=== PATIENT | male | born 1975 | race Asian ===

== ENCOUNTER 2024-02-14 10:47 | Outpatient (CLI) | payer OTHER | END 2024-02-14 10:48 | disposition home or self-care (01) | LOC: CSHULT 10:47 | PROVIDERS: ATTEND Family Medicine | DX: R94.5 Abnormal results of liver function studies (principal); K76.0 Fatty (change of) liver, not elsewhere classified; K82.4 Cholesterolosis of gallbladder | CPT/HCPCS: 76705 ==